=== PATIENT | female | born 1990 ===

== ENCOUNTER → 2018-07-27 18:51 | Outpatient (REF) | payer OTHER, SELFPAY ==
[2018-07-31 13:45] LABS: QuantiFERON TB NEGATIVE (Negative)
[2018-08-01 13:02] LABS: Rapid Plasma Reagin NON-REACTIVE
== END ==
LOC: LAB 18:51
PROVIDERS: Visit Provider Family Medicine Adult Medicine
DX: Z00.00 Encounter for general adult medical examination without abnormal findings (principal)
CPT/HCPCS: 86480; 86592; 87591